=== PATIENT | female | born 1935 | race Caucasian/White ===

== ENCOUNTER 2016-11-22 05:30 | Day surgery (SDC) | payer OTHER ==
[2016-11-16 10:08] LABS: BASOPHILS 0.8 %; BASOPHILS ABSOLUTE 0.05 10/3/uL (0.0-0.16); EOSINOPHILS 7.1 %; EOSINOPHILS ABSOLUTE 0.45 10/3/uL (0.0-0.53); HEMATOCRIT 39.5 % (36.0-48.0); HEMOGLOBIN 13.4 g/dL (12.0-16.0); IMMATURE GRANULOCYTES 0.2 %; IMMATURE GRANULOCYTES ABSOLUTE 0.01 10/3/uL (0.0-0.11); LYMPHOCYTES ABSOLUTE 1.39 10/3/uL (0.67-4.30); MEAN CORPUS HGB CONC 33.9 g/dL (32.0-36.0); MEAN CORPUSCULAR VOLUME 91.4 fL (80-100); MEAN PLATELET VOLUME 9.2 fL (9.2-13.0); MONOCYTES ABSOLUTE 0.63 10/3/uL (0.21-1.20); NEUTROPHILS 59.9 %; NEUTROPHILS ABSOLUTE 3.78 10/3/uL (2.02-8.40); PLATELET COUNT 201 10/3/uL (150-400); RED CELL COUNT 4.32 10/6/uL (4.0-5.6); WHITE BLOOD CELLS 6.3 10/3/uL (4.5-10.5)
[2016-11-16 10:12] LABS: MANUAL DIFF NO %
[2016-11-16 10:22] LABS: BUN (BLOOD UREA NITROGEN) 15 MG/DL (6-23); CALCIUM, SERUM 9.3 MG/DL (8.5-10.4); CHLORIDE, SERUM 105 MMOL/L (96-112); CO2 (CARBON DIOXIDE) 29 MMOL/L (24-34); CREATININE 0.87 MG/DL (0.55-1.02); GFR AFRICAN AMERICAN 73 ML/MIN (>=60); GFR NON AFRICAN AMERICAN 63 ML/MIN (>=60); GLUCOSE, SERUM 87 MG/DL (60-99); POTASSIUM, SERUM 3.9 MMOL/L (3.5-5.3); SODIUM, SERUM 144 MMOL/L (135-148)
--- NOTE | ~2016-11-22 | OP ---
Record Of Operation [facility] [address] [place]. [address] NAME: DOUG EATON : 39 STATUS : [facility]#: [id number] AGE: 81 ADM/REG DATE : 11/22/16 MR#: [id number] REPORT SERV DATE: 11/23/16 DICTATED BY: ANJEL PERALTA DATE: 11/23/16 REPORT STATUS : Draft TRANSCRIBED BY: MODL DATE: 11/23/16 DATE OF PROCEDURE: 11/22/2016 PREOPERATIVE DIAGNOSES: Choking sensation, esophageal stricture. PREOPERATIVE DIAGNOSES: Choking sensation, esophageal stricture. OPERATIVE PROCEDURES PERFORMED: 1. Microscopic direct laryngoscopy with transoral division of adhesion at the base of tongue. 2. Rigid cervical esophagoscopy. 3. Esophageal dilation with serial bougie dilators. INDICATIONS AND SIGNIFICANT HISTORY: The patient is a 81-year-old female with significant history of squamous cell carcinoma of the larynx, status post total laryngectomy many years ago. She now has a stable stoma, but has problems with intermittent choking. She was felt to benefit from direct laryngoscopy, esophagoscopy, and esophageal dilation if needed. OPERATIVE PROCEDURE AND FINDINGS: After informed consent was obtained, the patient was brought to the operating room and placed on the operating table in a supine position, at which point, general endotracheal anesthesia was induced by anesthesia service via her cervical stoma. After airway had been established, bed was turned to 90 degrees toward the taping machine operator and through guarded edentulous alveolar ridge. A Dedo laryngoscope was inserted into the oral cavity. Oral cavity, base of tongue, and neopharyngeal area all appears to be fairly normal except for a dense scar band emanating across transversely at the base of tongue with small pocket formation. This was addressed in second part of the case by taking a sickle knife under the microscope and dividing this in midline allowing the bar to fall laterally. Attention was then turned toward the esophageal introitus, where a rigid cervical esophagoscope was inserted and esophagus was inspected for 26 cm. There was noted to be narrowing of the lumen at the anastomosis site from her prior laryngectomy. Serial dilation was performed with bougie dilators under direct visualization, and she was fairly dilated from 26-Andorran up to 48-Andorran size bougie. She tolerated this well. All instrumentation was withdrawn. The patient was then turned back toward anesthesia, aroused from anesthesia, and taken to the postanesthesia care unit in a satisfactory condition. COMPLICATIONS: None. ESTIMATED BLOOD LOSS: Less than 5 mL. IV FLUIDS: Per anesthesia. ANTOLIN/FILIBERTO Anjel Rodriguez Record Of [address] [address] NAME: DOUG EATON : 39 STATUS : [facility] PAT#: [id number] AGE: 81 ADM/REG DATE : 11/22/16 MR#: [id number] REPORT SERV DATE: 11/23/16 DICTATED BY: ANJEL PERALTA. DATE: 11/23/16 REPORT STATUS : Draft TRANSCRIBED BY: FILIBERTO DATE: 11/23/16 Rodolfo Peralta / [id number] CC: Rodolfo Aranda M.D.
[~2016-11-22 05:30] MED LIST: ACCUNEB INH; ALBUTEROL0.63 MG/3 INH; BACTRONASA TP; CELEXA20 PO; COUMADIN4 MG PO; DEPAKOT250 PO; LEVAQUIN750 MG PO; LEVOTHYROXIN100 MCG PO; LEVOTHYROXIN75 MCG PO; NEUR300 PO; NEUR600 PO; TUMSROLL PO; [UNRECOGNIZED DRUG - REMARK] TOP
== END 2016-11-22 12:23 | disposition home or self-care (01) ==
LOC: SDC 05:30
PROVIDERS: Otolaryngology
PROC: 0D758ZZ Dilation of Esophagus, Via Natural or Artificial Opening Endoscopic (ICD-10-PCS; principal; 2016-11-22 07:30)
PROC: 0CN Mouth and Throat, Release (ICD-10-PCS; 2016-11-22 07:30)
DX: K22.2 Esophageal obstruction (principal); J44.9 Chronic obstructive pulmonary disease, unspecified; F41.9 Anxiety disorder, unspecified; F32.9 Major depressive disorder, single episode, unspecified; E03.9 Hypothyroidism, unspecified; M19.90 Unspecified osteoarthritis, unspecified site; Z86.718 Personal history of other venous thrombosis and embolism; Z98.890 Other specified postprocedural states; Z79.899 Other long term (current) drug therapy; Z88.0 Allergy status to penicillin; Z88.1 Allergy status to other antibiotic agents; Z87.891 Personal history of nicotine dependence; Z90.49 Acquired absence of other specified parts of digestive tract; Z90.89 Acquired absence of other organs; Z85.21 Personal history of malignant neoplasm of larynx
CPT/HCPCS: 80048; 85025; 93005; J2250; J2405; J3010

== ENCOUNTER 2016-11-25 11:24 | Emergency (ER) | payer OTHER ==
[2016-11-25 10:36] LABS: BASOPHILS 0.4 %; BASOPHILS ABSOLUTE 0.03 10/3/uL (0.0-0.16); EOSINOPHILS 2.1 %; EOSINOPHILS ABSOLUTE 0.17 10/3/uL (0.0-0.53); HEMATOCRIT 37.7 % (36.0-48.0); HEMOGLOBIN 12.8 g/dL (12.0-16.0); IMMATURE GRANULOCYTES 0.3 %; IMMATURE GRANULOCYTES ABSOLUTE 0.02 10/3/uL (0.0-0.11); LYMPHOCYTES 10.6 %; LYMPHOCYTES ABSOLUTE 0.84 10/3/uL (0.67-4.30); MEAN CORPUSCULAR HEMOGLOB 31.8 pg (26.0-34.0); MEAN CORPUSCULAR VOLUME 93.8 fL (80-100); MEAN PLATELET VOLUME 9.1 fL (9.2-13.0); MONOCYTES 5.3 %; MONOCYTES ABSOLUTE 0.42 10/3/uL (0.21-1.20); NEUTROPHILS 81.3 %; NEUTROPHILS ABSOLUTE 6.46 10/3/uL (2.02-8.40); PLATELET COUNT 159 10/3/uL (150-400); RBC DISTRIBUTION WIDTH 12.9 % (12.0-16.0); RED CELL COUNT 4.02 10/6/uL (4.0-5.6); WHITE BLOOD CELLS 7.9 10/3/uL (4.5-10.5)
[2016-11-25 10:39] LABS: MANUAL DIFF NO %
[2016-11-25 10:45] LABS: INTERNATIONAL NORMAL RATI 1.2 UNITS (-); PARTIAL THROMBO TIME 36.1 SEC (22.5-37.2); PROTIME (NOT ORD) 14.9 SEC (12.0-14.5)
[2016-11-25 10:52] LABS: ALBUMIN 3.9 G/DL (3.5-5.0); BUN (BLOOD UREA NITROGEN) 13 MG/DL (6-23); CHEST PAIN PROFILE TAT 0 Hrs 20 Mins; CHLORIDE, SERUM 103 MMOL/L (96-112); CO2 (CARBON DIOXIDE) 29 MMOL/L (24-34); CREATININE 0.73 MG/DL (0.55-1.02); DIRECT BILIRUBIN 0.2 MG/DL (0.0-0.4); GFR AFRICAN AMERICAN 91 ML/MIN (>=60); GFR NON AFRICAN AMERICAN 78 ML/MIN (>=60); POTASSIUM, SERUM 3.7 MMOL/L (3.5-5.3); SGOT(AST) 13 U/L (5-40); SGPT(ALT) 18 U/L (5-65); SODIUM, SERUM 141 MMOL/L (135-148); TOTAL PROTEIN 7.7 G/DL (6.0-8.5); TROPONIN I <0.02 NG/ML (<0.05)
[2016-11-25 10:53] LABS: ALKALINE PHOSPHATASE 65 U/L (45-117); GLUCOSE, SERUM 122 MG/DL (60-99); INDIRECT BILIRUBIN(NOT ORDER) 0.4 MG/DL (0.1-0.9); TOTAL BILIRUBIN 0.6 MG/DL (0-1.2)
[2016-11-25 13:12] LABS: ASCORBIC ACID (UR NOT ORDER) NEG (NEG); BILIRUBIN, URINE NEGATIVE (NEG); ER URINALYSIS TAT 0 Hrs 08 Mins; KETONE, URINE NEGATIVE (NEG); LEUKOCYTE ESTERASE(NOT OR NEG (NEG); NITRITE (URINE) NEG (NEG); WBC (NOT ORDERED) (RFLEX) 1 (0-5)
== END 2016-11-25 14:31 | disposition home or self-care (01) ==
LOC: ER 11:24
PROVIDERS: Emergency Medicine
DX: R11.0 Nausea (principal); J44.9 Chronic obstructive pulmonary disease, unspecified; F32.9 Major depressive disorder, single episode, unspecified; F41.9 Anxiety disorder, unspecified; Z86.718 Personal history of other venous thrombosis and embolism; Z88.0 Allergy status to penicillin; Z88.5 Allergy status to narcotic agent; Z88.1 Allergy status to other antibiotic agents; Z79.899 Other long term (current) drug therapy
CPT/HCPCS: 71010; 80048; 80076; 81001; 83690; 83735; 84484; 85025; 85610; 85730; 93005; 96374; 99284; J2405